=== PATIENT | male | born 1965 | race African-American/Black ===

== ENCOUNTER → 2019-06-03 | Outpatient (CLI) | payer OTHER ==
[2019-05-21 16:20] VITALS: BP 134/85
[~2019-06-03] MED LIST: AMOX1TAB11 PO; ATOR40TA59 PO; LISI10TA2 PO; LISI1TAB23 PO; MECL12.573 PO; MULT-246 PO; PANT40TA77 PO; REGADENOSON 0.4 MG/5 ML DISP.SYRIN. IV ONE
--- NOTE | 2019-06-03 12:06 | RAD ---
MR#: [id number] Date of Study: 06/03/2019 Ordering Physician: NATALY KHAN, Referring Physician: HIWOT ECHOLS Tech: AUSTIN Robles, DANYA (R) (N) APPROVED REPORT Test Type: Pharmacological Stress Nurse/Tech: Anum Shah RN Test Indications: chest pressure, syncope Cardiac History: No known cardiac Medications: See Electronic Medical Record Medical History: See Electronic Medical Record Resting ECG: SR Resting Heart Rate: 75 bpm Resting Blood Pressure: 124/70mmHg Pretest Chest Pain: None Nurse/Tech Notes lungs CTA, S1S2 Consent: The procedure was explained to the patient in lay terms. Informed consent was witnessed. Timothy eout was entered into [employer]. History and Stress Test performed by RT Susannah (R) (N) Pharm. Details Pharmacologic stress testing was performed using 0.4mg per 5ml of regadenoson given intravenously ove r 7-10 seconds. Stress Symptoms No chest pain or symptoms. POST EXERCISE Reason for Termination: Infusion complete Max HR: 110 bpm Max Blood Pressure: 111/68mmHg Blood Pressure response to exercise: Normal blood pressure response during stress. Heart Rate response to exercise: normal response Chest Pain: No. Arrhythmia: No. ST Change: No. INTERPRETATION Stress EKG Conclusion: No evidence of stress induced EKG changes Imaging Protocol IMAGE PROTOCOL: Rest Tc-99m/stress Tc-99m 1 day Rest: Stress: Viability: Radiopharm.Tc99m LolvqbdybBs32u Sestamibi Tcrl68lRe 32mCi Img Date 06/03/2019 06/03/2019 Inj-Img Imhr55mjs. 60min. Rest Admin Site:IV - Right AntecubitalAdministrator:RT Susannah (R)(N) Stress Admin Site: IV - Right AntecubitalAdministrator: AUSTIN Robles, DANYA (R)(N) STRESS DATA End Diast. Vol.121.0mlLVEDV index BSA56.0ml End Syst. Vol.40.0mlLVESV index BSA19.0ml Myocardial Akah931.0gEject. Zhrxdngx59.0% Stress Scores Regional WT1.00Summed WT9.00 Regional WM0.00Summed WM0.00 The rest and stress images show normal perfusion, normal contraction and thickening. LV Perf. Quant 17 Seg. SSS0.00 17 Seg. SRS0.00 17 Seg. SDS0.00 Stress Defect Extent (% LAD)0.00Rest Defect Extent (% LAD)0.00Rev. Defect Extent (% LAD)0.00 Stress Defect Extent (% LCX) 0.00Rest Defect Extent (% LCX)0.00Rev. Defect Extent (% LCX)0.00 Stress Defect Extent (% RCA)0.00Rest Defect Extent (% RCA)0.00Rev. Defect Extent (% RCA)0.00 Stress Defect Extent (% POPPY)0.00Rest Defect Extent (% POPPY)0.00Rev. Defect Extent (% POPPY)0.00 Other Information Quality:Fair Risk Assessment: Low Risk Conclusion 1. No evidence of EKG changes with stress testing. 2. Normal perfusion at stress/rest. 3. Low risk study. 4. EF > 60%. Signed by : Manas Figueroa, Electronically Approved : 06/03/2019 12:05:44
== END | disposition home or self-care (01) ==
LOC: NM 08:53
PROVIDERS: ATTEND Internal Medicine Cardiovascular Disease
DX: R07.89 Other chest pain (principal); I42.9 Cardiomyopathy, unspecified
CPT/HCPCS: 78452; 93017; A9500; J2785

== ENCOUNTER → 2019-06-05 | Outpatient (CLI) | payer OTHER ==
[2019-05-21 16:20] VITALS: BP 134/85
[~2019-06-05] MED LIST changes: -REGADENOSON 0.4 MG/5 ML DISP.SYRIN. IV ONE
--- NOTE | 2019-06-05 19:21 | RAD ---
EXAM: ULTRASOUND-GUIDED THYROID FINE-NEEDLE ASPIRATION. HISTORY: Thyroid nodule. Ultrasound-guided biopsy is requested. FINDINGS: The procedure along with its risks and benefits were explained to the patient. They agreed to proceed. A timeout procedure was performed. Sonographic images of the thyroid gland were obtained. The solid target nodule in the inferior right thyroid lobe was adequately visualized for biopsy. The overlying skin was sterilely prepped and infiltrated with 1% lidocaine for local anesthesia. Under ultrasound guidance, 4 aspirates were obtained using 25-gauge needles. These were hand delivered to pathology who determined them adequate for diagnosis. A sterile dressing was placed. There were no immediate complications. IMPRESSION: 1. Successful ultrasound-guided fine-needle aspiration of the right thyroid nodule. Electronically signed by: Jacky Kaba MD (06/05/2019 7:18 PM) [id number]
== END | disposition home or self-care (01) ==
LOC: US 15:43
PROVIDERS: ATTEND Internal Medicine
DX: E04.1 Nontoxic single thyroid nodule (principal)
CPT/HCPCS: 10005; 60300; 76942

== ENCOUNTER → 2020-03-16 | Outpatient (CLI) | payer MEDICARE, OTHER ==
[2019-05-21 16:20] VITALS: BP 134/85
[~2020-03-16] MED LIST changes: -MECL12.573 PO; +MECL12.574 PO
--- NOTE | 2020-03-16 17:50 | CARD ---
MR#: [id number] Date of Study: 03/16/2020 Ordering Physician: NATALY GARNER, Referring Physician: NATALY GARNER, Tech: Ivet Mota BRODERICK APPROVED REPORT EXAM: Two-dimensional and M-mode echocardiogram with Doppler and color Doppler. Other Information Quality : Good INDICATION Chest Pain 2D DIMENSIONS RVDd3.0 (2.9-3.5cm)Left Atrium(2D)3.9 (1.6-4.0cm) IVSd1.0 (0.7-1.1cm)Aortic Root(2D)3.4 (2.0-3.7cm) LVDd5.3 (3.9-5.9cm)LVOT Diameter2.2 (1.8-2.4cm) PWd1.1 (0.7-1.1cm)LVDs3.6 (2.5-4.0cm) FS (%) 30.8 %SV76.9 ml LVEF(%)58.0 (>50%) Aortic Valve AoV Peak Art.121.6cm/sAoV VTI22.3cm AO Peak GR.5.9mmHgLVOT Peak Art.82.9cm/s LVOT VTI 14.66cmAO Mean GR.3mmHg ADAM (VMAX)2.16jy3XRR (VTI)2.43cm2 Mitral Valve MV E Jhdpqekb82.6cm/sMV DECEL ZLIY817la MV A Jfumkukg28.0cm/sMV IBL48oy E/A Ratio0.6MVA (PHT)3.48cm2 TDI E/Lateral E'5.4E/Medial E'5.4 Tricuspid Valve TR P. Vbydzunz335ua/sRAP IBJRZCFL0riPi TR Peak Gr.07vnEjYXPE36sbUt Pulmonary Vein S1 Dqfvjlli79.0cm/sD2 Kucucgzn65.8cm/s LEFT VENTRICLE The left ventricle is normal size. There is normal left ventricular wall thickness. The left ventricu lar systolic function is normal and the ejection fraction is within normal range. The Ejection Fracti on is 55-60%. There is normal LV segmental wall motion. Transmitral Doppler flow pattern is Grade I-a bnormal relaxation pattern. RIGHT VENTRICLE The right ventricle is normal size. The right ventricular systolic function is normal. ATRIA The left atrium size is normal. The right atrium size is normal. The interatrial septum is intact wit h no evidence for an atrial septal defect or patent foramen ovale as noted on 2-D or Doppler imaging. AORTIC VALVE The aortic valve is calcified but opens well. Doppler and Color Flow revealed no significant aortic r egurgitation. There is no significant aortic valvular stenosis. MITRAL VALVE The mitral valve is calcified but opens well. Mitral annular calcification is mild. There is no evide nce of mitral valve prolapse. There is no mitral valve stenosis. Doppler and Color-flow revealed trac e mitral regurgitation. TRICUSPID VALVE The tricuspid valve is normal in structure and function. Doppler and Color Flow revealed trace tricus pid regurgitation. The PA pressure was estimated at 27 mmHg. There is no tricuspid valve stenosis. PULMONIC VALVE The pulmonic valve is not well visualized. Doppler and Color Flow revealed trace pulmonic valvular re gurgitation. There is no pulmonic valvular stenosis. GREAT VESSELS The aortic root is normal in size. The ascending aorta is mildly dilated at 3.5 cm. The IVC is normal in size and collapses >50% with inspiration. PERICARDIAL EFFUSION There is no evidence of significant pericardial effusion. Critical Notification Critical Value: No <Conclusion> The left ventricle is normal size. The left ventricular systolic function is normal and the ejection fraction is within normal range. The Ejection Fraction is 55-60%. There is normal LV segmental wall motion. Doppler and Color Flow revealed no significant aortic regurgitation. There is no significant aortic valvular stenosis. Doppler and Color-flow revealed trace mitral regurgitation. Doppler and Color Flow revealed trace tricuspid regurgitation. The PA pressure was estimated at 27 mmHg. The ascending aorta is mildly dilated at 3.5 cm. Signed by : Nataly Garner MD Electronically Approved : 03/16/2020 17:49:53
== END ==
LOC: ECHO 09:18
PROVIDERS: ATTEND Internal Medicine Cardiovascular Disease
DX: I08.0 Rheumatic disorders of both mitral and aortic valves (principal); I42.9 Cardiomyopathy, unspecified
CPT/HCPCS: 93306

== ENCOUNTER → 2020-06-14 | Outpatient (CLI) | payer OTHER ==
[2019-05-21 16:20] VITALS: BP 134/85
[~2020-06-14] MED LIST changes: +LISI10TA16 PO; -LISI10TA2 PO; -MECL12.574 PO; +MECL12.582 PO
--- NOTE | 2020-06-14 16:25 | RAD ---
2 views the right knee without comparison for right knee pain. FINDINGS: There are postsurgical changes of a total knee arthroplasty. There is a suprapatellar joint effusion. No fracture or acute osseous abnormalities identified. IMPRESSION: 1. Postsurgical changes with no acute osseous abnormality. There is a suprapatellar joint effusion. Electronically signed by: Travis Rae MD (06/14/2020 4:22 PM) [id number]
== END ==
LOC: RAD 10:54
PROVIDERS: ATTEND Surgery
DX: M25.461 Effusion, right knee (principal)
CPT/HCPCS: 73560

== ENCOUNTER → 2020-11-18 | Outpatient (CLI) | payer MEDICARE, OTHER ==
[2019-05-21 16:20] VITALS: BP 134/85
[~2020-11-18] MED LIST changes: +LIDOCAINE 1% Multi-Dose 20 ML VIAL. INJ ONE
--- NOTE | 2020-11-18 15:04 | RAD ---
Exam performed: [Fine-needle aspiration of a right thyroid nodule]. History: [Thyroid nodule seen on the recent outside ultrasound.]. Date of service: [11/18/2020]. Discussion: The procedure was explained to the patient and informed consent was obtained.. Preliminary scanning i dentified the [dominant echogenic left ] thyroid nodule to be subsequently biopsied. Using standard aseptic precautions, 10 cc of 1% lidocaine was infiltrated into the skin and deeper ti ssues. Thereafter 4 passes were made using 25-gauge needle and aspirates were collected. Post procedu re scanning demonstrated no evidence of hematoma formation. The patient tolerated the procedure well and no immediate complications were encountered. Impression: Technically successful fine-needle aspiration of a [ right ]thyroid nodule. Pathology is pending Electronically signed by: Nellie Dial MD (11/18/2020 3:01 PM) [id number]
== END | disposition home or self-care (01) ==
LOC: US 14:21
PROVIDERS: ATTEND Internal Medicine Endocrinology, Diabetes & Metabolism
DX: E04.1 Nontoxic single thyroid nodule (principal); I10 Essential (primary) hypertension; E78.00 Pure hypercholesterolemia, unspecified; Z79.899 Other long term (current) drug therapy; Z98.890 Other specified postprocedural states; Z72.89 Other problems related to lifestyle
CPT/HCPCS: 10005

== ENCOUNTER → 2021-05-16 | Outpatient (CLI) | payer MEDICARE ==
[2019-05-21 16:20] VITALS: BP 134/85
[~2021-05-16] MED LIST changes: -LIDOCAINE 1% Multi-Dose 20 ML VIAL. INJ ONE; -LISI1TAB23 PO; +LISI1TAB35 PO
--- NOTE | 2021-05-16 16:25 | RAD ---
EXAMINATION: Thyroid sonogram. INDICATION: Thyroid nodule. COMPARISON: 05/20/2019 and 11/18/2020 Technique: Real-time grayscale and color Doppler imaging of the thyroid gland was performed per myrna col. Findings: The right thyroid lobe measures: 5.3 x 2.8 x 3.7 cm. The left thyroid lobe measures: 4.4 x 1.7 x 1.6 cm. The isthmus measures: 0.64 cm. There is a single measurable thyroid nodule, described below. Nodule size: 3.5 x 2.3 x 2.0 cm. Location: Inferior right thyroid lobe. Composition: Solid or almost completely solid (2 points) Echogenicity: Hyperechoic or isoechoic (1 point) Shape: Attrw-hale-eeiy (0 points) Margins: Smooth (0 points) Echogenic foci: None or large comet-tail artifacts (0 points) ACR TI-RADS total points: 3. ACR TI-RADS risk category: TR3 (3 points) - Mildly suspicious. FNA if ?2.5 cm. Follow if ?1.5 cm. IMPRESSION: 3.5 x 2.3 x 2.0 cm right thyroid nodule, increased compared to prior measurements of 3.0 x 2.2 x 1.9 cm. TI-RADS Category 3. Needle aspiration of category 3 nodules of this size is recommen ded according to ACR guidelines. This was performed 11/18/2020. Given slight interval increase in size , correlation with pathology findings corresponding with this prior fine-needle aspiration is recomme nded. ACR TI-RADS recommendations TR5 (?7 points) - FNA if ? 1cm, follow-up if 0.5 - 0.9 cm every year for 5 years TR4 (4-6 points) - FNA if ? 1.5cm, follow-up if 1 - 1.4 cm in 1, 2, 3 and 5 years TR3 (3 points)- FNA if ? 2.5cm, follow-up if 1.5 - 2.4 cm in 1, 3 and 5 years TR2 (2 points) & TR1 (0 points) - No FNA or follow-up *Decision to biopsy should include other considerations such as patient demographics and relevant cli nical information. Reference: TIRADS 2017 J Am Prem Radiol 2017;14:587-595 Electronically signed by: Danay Driver MD (05/16/2021 4:23 PM) [id number]
== END ==
LOC: US 14:55
PROVIDERS: ATTEND Internal Medicine
DX: E04.1 Nontoxic single thyroid nodule (principal)
CPT/HCPCS: 76536

== ENCOUNTER → 2021-06-14 | Outpatient (CLI) | payer MEDICARE ==
[2019-05-21 16:20] VITALS: BP 134/85
== END ==
LOC: LAB 08:31
PROVIDERS: ATTEND Internal Medicine Endocrinology, Diabetes & Metabolism
DX: E04.1 Nontoxic single thyroid nodule (principal)
CPT/HCPCS: 36415; 84443

== ENCOUNTER → 2021-07-05 | Outpatient (CLI) | payer MEDICARE ==
[2019-05-21 16:20] VITALS: BP 134/85
--- NOTE | 2021-07-05 14:51 | RAD ---
EXAMINATION: ULTRASOUND-GUIDED FINE NEEDLE ASPIRATION RIGHT THYROID NODULE CLINICAL HISTORY: Right thyroid nodule. History of 2 prior biopsies of the nodule - one on 11/18/2020 compatible with a benign follicular nodule and one prior to this which was inconclusive. COMPARISON: Thyroid ultrasound 05/16/2021 PROCEDURE: The risks, benefits, treatment options, potential complications, and personnel to be involved were di scussed with the patient. All questions were answered and consent was obtained. The patient indicated willingness to proceed. Ultrasound guidance was used to target the right thyroid nodule. The neck was then sterilely prepped and draped. A time out was performed immediately prior to the start of the procedure with the procedu ral team, correctly identifying the patient name, date of , procedure, and site/side of procedur e to be performed. Under ultrasound guidance, 1% lidocaine was administered at the skin and in the soft tissues along th e expected biopsy path. 4 separate passes were made into the nodule with a 22-gauge needle. To and fr o movement of the needle was performed in the nodule while aspiration was applied. After all needles were removed, good hemostasis was achieved with light manual compression. No signif icant blood loss. No immediate complications were encountered. IMPRESSION: Successful ultrasound-guided fine needle aspiration of a right thyroid nodule. Electronically signed by: Jabari Orr DO (07/05/2021 2:49 PM) [id number]
== END | disposition home or self-care (01) ==
LOC: US 13:45
PROVIDERS: ATTEND Internal Medicine Endocrinology, Diabetes & Metabolism
DX: E04.1 Nontoxic single thyroid nodule (principal); I10 Essential (primary) hypertension; E78.00 Pure hypercholesterolemia, unspecified; Z79.899 Other long term (current) drug therapy; Z72.89 Other problems related to lifestyle; Z98.890 Other specified postprocedural states
CPT/HCPCS: 10005; C1819